=== PATIENT | male | born 1970 | race Caucasian/White ===

== ENCOUNTER 2016-11-01 01:00 | Inpatient (IN) | payer OTHER ==
[~2016-11-01] VITALS: Ht 177.8 cm; Wt 121.2 kg
[2016-11-01] VITALS (11 sets, daily range): BP systolic 110–146; BP diastolic 56–77; PULSE 99–111; RESP 16–22; TEMP 98.4–98.8; O2SAT 93–96
[~2016-11-01 01:00] MED LIST: AMLO5TAB22 PO; AMOX875 PO; LISI-363 PO; METF500 PO; PRED20 PO; SYNT75TA PO
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
[2016-11-01] MEDS ORDERED: MORPHINE SULFATE 4 MG/ML INJ IV PUSH ONE (01:15)
[2016-11-01] MEDS ORDERED: SODIUM CHLORIDE 0.9% FLUSH 10 ML FLUSH IVF PRN (01:15)
[2016-11-01] MEDS ORDERED: SODIUM CHLOR 0.9% 1000 ML INJ 1,000 ML IV ONE (01:15)
[2016-11-01] MEDS ORDERED: ONDANSETRON HCL 4 MG/2 ML VIAL IV PUSH ONE (01:15)
[2016-11-01] MEDS ORDERED: LISI10TA3 PO (01:16)
[2016-11-01] MEDS ORDERED: METF500T PO (01:16)
[2016-11-01 01:28] LABS: BASOPHIL % 0.2 % (0.0-2.0); EOSINOPHIL # 0.1 TH/MM3 (0-0.4); EOSINOPHIL % 0.4 % (0.0-4.0); HEMATOCRIT 46.5 % (39.0-51.0); LYMPH % 27.7 % (9.0-44.0); LYMPHOCYTE # 5.4 TH/MM3 (1.0-4.8); MEAN CELL VOLUME 84.3 FL (80.0-100.0); MEAN CORPUSCULAR HEMOGLOBIN 27.6 PG (27.0-34.0); MEAN CORPUSCULAR HGB CONC 32.8 % (32.0-36.0); MONO % 4.5 % (0.0-8.0); NEUT % 67.2 % (16.0-70.0); PLATELET COUNT 338 TH/MM3 (150-450); RED BLOOD COUNT 5.52 MIL/MM3 (4.50-5.90); RED CELL DISTRIBUTION WIDTH 13.9 % (11.6-17.2); WHITE BLOOD COUNT 19.4 TH/MM3 (4.0-11.0)
[2016-11-01 01:31] LABS: HEMO FLAGS AUTO DIFF
[2016-11-01 01:43] LABS: BICARBONATE 20.3 MEQ/L (21.0-32.0); POTASSIUM 3.5 MEQ/L (3.5-5.1)
[2016-11-01 01:48] LABS: PROTHROMBIN TIME - PATIENT 11.1 SEC (9.8-11.6)
[2016-11-01 01:55] LABS: APTT (PATIENT) 20.8 SEC (24.3-30.1)
[2016-11-01 02:00] LABS: BANDS 4 % (0-6); NEUTROPHIL # MANUAL DIFF 12.8 TH/MM3 (1.8-7.7); PLATELET ESTIMATE SMEAR NORMAL (NORMAL); PLATELET MORPHOLOGY NORMAL (NORMAL); POLYS (SEG NEUTROPHILS) 62 % (16-70); SCAN/DIFF FINAL DIFF MANUAL; WBC DIFF SAMPLE 100
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
[2016-11-01] MEDS ORDERED: METFORMIN HOLD POST IV CONTRAST SCH (02:10)
[2016-11-01] MEDS ORDERED: IOHEXOL 350 MG/ML 10 ML VIAL (for RAD DIAG) IV ONE (02:19)
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
[2016-11-01] MEDS ORDERED: MORPHINE SULFATE 8 MG/ML INJ IV PUSH ONE (03:15)
[2016-11-01] MEDS ORDERED: ONDANSETRON HCL 4 MG/2 ML VIAL IV PRN (04:45)
[2016-11-01] MEDS ORDERED: SYNT25TA PO (05:02)
[2016-11-01] MEDS ORDERED: ATOR20TA15 PO (05:02)
[2016-11-01] MEDS: MORPHINE SULFATE 4 MG/ML INJ IV PRN ×2 (06:09→08:58)
[2016-11-01] MEDS: METHOCARBAMOL 500 MG TAB PO SCH ×2 (08:58→15:45)
[2016-11-01] MEDS: LIDOCAINE HCL 5% PATCH T-DERMAL SCH (08:58)
[2016-11-01] MEDS ORDERED: metFORMIN HCL 500 MG TAB PO SCH (09:00)
[2016-11-01] MEDS: REMOVE OLD LIDOCAINE PATCH T-DERMAL SCH (09:00)
[2016-11-01] MEDS: LISINOPRIL 10 MG TAB PO SCH (09:00)
[2016-11-01] MEDS ORDERED: GLUCAGON 1 MG/ML VIAL OTHER PRN (09:00)
[2016-11-01] MEDS ORDERED: DEXTROSE 50% IN WATER 50 ML VIAL(D50) IV PUSH PRN (09:00)
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
[2016-11-01] MEDS: INSULIN NovoLIN REGULAR SUPPLEMENTAL SCALE SQ SCH ×3 (11:00→21:42)
[2016-11-01] MEDS: fentaNYL 50 MCG/HR PATCH T-DERMAL SCH (11:44)
[2016-11-01] MEDS: KETOROLAC TROMETHAMINE 60 MG/2 ML (IM) VIAL IM SCH ×2 (11:46→17:38)
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
[2016-11-01] MEDS: oxyCODONE/ACETAMINOPHEN 5 MG/325 MG TAB PO PRN ×2 (15:46→21:43)
[2016-11-01] MEDS: ATORVASTATIN 20 MG TAB PO SCH (21:41)
[2016-11-01] MEDS: FAMOTIDINE 20 MG TAB PO SCH (21:42)
[2016-11-01] MEDS: MAGNESIUM HYDROXIDE SUSP 30 ML CUP PO SCH (21:42)
[2016-11-02] VITALS (8 sets, daily range): BP systolic 128–148; BP diastolic 70–85; PULSE 100–105; RESP 17–18; TEMP 97.6–99.3; O2SAT 92–95
[2016-11-02] MEDS: KETOROLAC TROMETHAMINE 60 MG/2 ML (IM) VIAL IM SCH ×3 (01:01→11:54)
[2016-11-02] MEDS: METHOCARBAMOL 500 MG TAB PO SCH ×4 (01:02→23:09)
[2016-11-02] MEDS: LEVOTHYROXINE SODIUM 25 MCG TAB PO SCH (06:20)
[2016-11-02] MEDS: oxyCODONE/ACETAMINOPHEN 5 MG/325 MG TAB PO PRN ×5 (06:21→23:10)
[2016-11-02] MEDS: INSULIN NovoLIN REGULAR SUPPLEMENTAL SCALE SQ SCH ×4 (06:25→21:00)
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
--- NOTE | 2016-11-02 07:45 | HHI.FF ---
Face to Face Verification Diagnosis: (1) Rib fractures (2) Renal contusion (3) Contusion of adrenal gland (4) C1 cervical fracture Physical Therapy Order: Evaluate and Treat, Improve ambulation, Strength and gait training Home Health Nursing Order: Medical education Signs/symptoms of disease process Diabetic education Medication education-adverse effect Nursing assessment with vital signs I have seen patient Too CazaresJr bernabe on 11/02/16. My clinical findings support the need for the requested home health care services because: Ltd mobility - disease progression Deconditioned w/ increased weakness Limited ability to care for self High risk of falls I certify that my clinical findings support that this patient is homebound because: Post-op weakness Unsteady gait/balance Unsafe to leave home unassisted Unable to use public transportation Radha Walsh Nov 02, 2016 07:45
[2016-11-02] MEDS ORDERED: WALKER WHEELS/F1 MIS (07:47)
[2016-11-02] MEDS ORDERED: MAGN400S PO (07:47)
[2016-11-02 08:44] LABS: HEMATOCRIT 41.6 % (39.0-51.0); MEAN CELL VOLUME 83.1 FL (80.0-100.0); MEAN CORPUSCULAR HEMOGLOBIN 28.2 PG (27.0-34.0); PLATELET COUNT 206 TH/MM3 (150-450); RED CELL DISTRIBUTION WIDTH 14.3 % (11.6-17.2); REVIEW FLAG FINAL; WHITE BLOOD COUNT 13.4 TH/MM3 (4.0-11.0)
[2016-11-02 09:11] LABS: POTASSIUM 4.1 MEQ/L (3.5-5.1)
[2016-11-02] MEDS: DOCUSATE SODIUM 50 MG/SENNA 8.6 MG TAB PO SCH ×2 (09:28→21:31)
[2016-11-02] MEDS: LISINOPRIL 10 MG TAB PO SCH (09:30)
[2016-11-02] MEDS: LIDOCAINE HCL 5% PATCH T-DERMAL SCH (09:31)
[2016-11-02] MEDS: REMOVE OLD LIDOCAINE PATCH T-DERMAL SCH (09:31)
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
[2016-11-02] MEDS ORDERED: HYDROmorphone HCL PF 1 MG/ML VIAL IV PUSH PRN (12:30)
[2016-11-02] MEDS ORDERED: oxyCODONE/ACETAMINOPHEN 5 MG/325 MG TAB PO PRN (12:30)
[2016-11-02] MEDS: ENOXAPARIN SODIUM 30 MG/0.3 ML SYRINGE SQ SCH (14:55)
[2016-11-02 17:09] LABS: AMPHETAMINE, URINE NEG (NEG); BARBITURATES, URINE NEG (NEG); COCAINE, URINE NEG (NEG)
[2016-11-02] MEDS: GABAPENTIN 300 MG CAP PO SCH (18:27)
[2016-11-02] MEDS: KETOROLAC TROMETHAMINE 30 MG/ML (IVP) VIAL IV PUSH SCH ×2 (18:28→23:10)
[2016-11-02] MEDS: metFORMIN HCL 500 MG TAB PO SCH ×2 (21:00→21:33)
[2016-11-02] MEDS: MAGNESIUM HYDROXIDE SUSP 30 ML CUP PO SCH (21:31)
[2016-11-02] MEDS: FAMOTIDINE 20 MG TAB PO SCH (21:31)
[2016-11-02] MEDS: ATORVASTATIN 20 MG TAB PO SCH (21:31)
[2016-11-03] VITALS: BP 114/70; PULSE 99; RESP 16; TEMP 97; O2SAT 97
[2016-11-03] MEDS: ENOXAPARIN SODIUM 30 MG/0.3 ML SYRINGE SQ SCH ×2 (02:13→14:35)
[2016-11-03] MEDS: KETOROLAC TROMETHAMINE 30 MG/ML (IVP) VIAL IV PUSH SCH ×4 (05:08→23:53)
[2016-11-03] MEDS: LEVOTHYROXINE SODIUM 25 MCG TAB PO SCH (05:08)
[2016-11-03] MEDS: oxyCODONE/ACETAMINOPHEN 5 MG/325 MG TAB PO PRN ×5 (05:08→23:52)
[2016-11-03] MEDS: INSULIN NovoLIN REGULAR SUPPLEMENTAL SCALE SQ SCH ×4 (06:26→21:00)
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
[2016-11-03 07:05] VITALS: BP 136/84; PULSE 91; RESP 18; TEMP 97.6; O2SAT 92
[2016-11-03] MEDS: METHOCARBAMOL 500 MG TAB PO SCH ×3 (09:55→23:52)
[2016-11-03] MEDS: LISINOPRIL 10 MG TAB PO SCH (09:55)
[2016-11-03] MEDS: DOCUSATE SODIUM 50 MG/SENNA 8.6 MG TAB PO SCH ×2 (09:55→21:58)
[2016-11-03] MEDS: LACTULOSE SYRUP 20 GM/30 ML CUP PO SCH (09:55)
[2016-11-03] MEDS: metFORMIN HCL 500 MG TAB PO SCH ×2 (09:55→19:34)
[2016-11-03] MEDS: GABAPENTIN 300 MG CAP PO SCH ×3 (09:55→19:33)
[2016-11-03] MEDS: LIDOCAINE HCL 5% PATCH T-DERMAL SCH (09:56)
[2016-11-03] MEDS: REMOVE OLD LIDOCAINE PATCH T-DERMAL SCH (09:57)
[2016-11-03 10:18] VITALS: O2SAT 93
[2016-11-03 12:00] VITALS: BP 136/83; PULSE 90; RESP 18; TEMP 97.3; O2SAT 96
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
[2016-11-03] MEDS ORDERED: SENN1TAB PO (12:35)
[2016-11-03] MEDS ORDERED: IBUP-232 PO (12:35)
[2016-11-03 16:00] VITALS: BP 134/77; PULSE 94; RESP 18; TEMP 99.2; O2SAT 94
[2016-11-03 20:50] VITALS: BP 149/78; PULSE 85; RESP 17; TEMP 98; O2SAT 95
[2016-11-03] MEDS: FAMOTIDINE 20 MG TAB PO SCH (21:58)
[2016-11-03] MEDS: MAGNESIUM HYDROXIDE SUSP 30 ML CUP PO SCH (21:58)
[2016-11-03] MEDS: ATORVASTATIN 20 MG TAB PO SCH (21:58)
[2016-11-04 00:40] VITALS: BP 126/70; PULSE 80; RESP 17; TEMP 97; O2SAT 98
[2016-11-04] MEDS: ENOXAPARIN SODIUM 30 MG/0.3 ML SYRINGE SQ SCH ×2 (02:46→13:26)
[2016-11-04] MEDS: oxyCODONE/ACETAMINOPHEN 5 MG/325 MG TAB PO PRN ×3 (04:35→13:27)
[2016-11-04] MEDS: LEVOTHYROXINE SODIUM 25 MCG TAB PO SCH (04:35)
[2016-11-04] MEDS: KETOROLAC TROMETHAMINE 30 MG/ML (IVP) VIAL IV PUSH SCH ×2 (05:42→12:05)
[2016-11-04] MEDS: INSULIN NovoLIN REGULAR SUPPLEMENTAL SCALE SQ SCH ×2 (06:30→11:00)
[2016-11-04 07:35] VITALS: BP 140/80; PULSE 89; RESP 19; TEMP 98; O2SAT 98
[2016-11-04] MEDS: GABAPENTIN 300 MG CAP PO SCH ×2 (08:47→12:05)
[2016-11-04] MEDS: LISINOPRIL 10 MG TAB PO SCH (08:47)
[2016-11-04] MEDS: METHOCARBAMOL 500 MG TAB PO SCH (08:47)
[2016-11-04] MEDS: LACTULOSE SYRUP 20 GM/30 ML CUP PO SCH (08:47)
[2016-11-04] MEDS: metFORMIN HCL 500 MG TAB PO SCH (08:47)
[2016-11-04] MEDS: LIDOCAINE HCL 5% PATCH T-DERMAL SCH (08:48)
[2016-11-04] MEDS: DOCUSATE SODIUM 50 MG/SENNA 8.6 MG TAB PO SCH (08:48)
[2016-11-04] MEDS: REMOVE OLD LIDOCAINE PATCH T-DERMAL SCH (08:48)
[2016-11-04 11:22] VITALS: BP 134/81; PULSE 97; RESP 18; TEMP 98.4; O2SAT 95
[2016-11-04] MEDS ORDERED: REMOVE OLD PATCH T-DERMAL SCH (12:00)
[2016-11-04] MEDS: fentaNYL 50 MCG/HR PATCH T-DERMAL SCH (12:06)
[2016-11-04] MEDS ORDERED: OXYC1TAB63 PO (13:12)
[2016-11-04] MEDS ORDERED: NEUR300C PO (13:23)
[2016-11-04] MEDS ORDERED: METH500T3 PO ×2 (13:23→13:26)
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
== END 2016-11-04 14:23 | disposition home or self-care (01) | DRG 964 ==
LOC: NEPC 01:00 → NEDA 03:15 → N06B 06:00
PROVIDERS: ADMIT Surgery; ATTEND Surgery
DX: S27.321A Contusion of lung, unilateral, initial encounter (principal); S22.42XA Multiple fractures of ribs, left side, initial encounter for closed fracture; S37.012A Minor contusion of left kidney, initial encounter; S12.001A Unspecified nondisplaced fracture of first cervical vertebra, initial encounter for closed fracture; S37.812A Contusion of adrenal gland, initial encounter; S39.012A Strain of muscle, fascia and tendon of lower back, initial encounter; V28.4XXA Motorcycle driver injured in noncollision transport accident in traffic accident, initial encounter; Y92.488 Other paved roadways as the place of occurrence of the external cause; E11.9 Type 2 diabetes mellitus without complications; Z79.84 Long term (current) use of oral hypoglycemic drugs; E66.9 Obesity, unspecified; Z68.38 Body mass index [BMI] 38.0-38.9, adult; Y90.6 Blood alcohol level of 120-199 mg/100 ml; Z72.89 Other problems related to lifestyle; I10 Essential (primary) hypertension; E78.5 Hyperlipidemia, unspecified; E03.9 Hypothyroidism, unspecified; M43.06 Spondylolysis, lumbar region
CPT/HCPCS: 70450; 71010; 71260; 72125; 72128; 72131; 72170; 74177; 80048; 80307; 82565; 82948; 83735; 85007; 85027; 85610; 85730; 94150; 94640; 94667; 94668; 96361; 96374; 96375; J1650; J1885; J2270; J2405; J7030; L0172; Q9967